=== PATIENT | female | born 1935 | race Caucasian/White ===

== ENCOUNTER → 2017-05-17 | Outpatient (CLI) | payer MEDICARE ==
[~2017-05-17] MED LIST: LEVSOD175
[2017-05-17 15:01] LABS: BASOPHILS ABSOLUTE AUTO 0.04 K/mm3 (0.00-0.23); BASOPHILS PERCENT AUTO 1 % (0-2); EOSINOPHILS ABSOLUTE AUTO 0.05 K/mm3 (0.00-0.68); EOSINOPHILS PERCENT AUTO 1 % (0-6); Hematocrit 32.9 % (33.0-51.0); Hemoglobin 10.7 g/dL (11.5-16.0); IMMATURE GRAN ABSOLUTE AUTO 0.01 K/mm3 (0.00-0.10); IMMATURE GRAN PERCENT AUTO 0 % (0-1); LYMPHOCYTES ABSOLUTE AUTO 0.34 K/mm3 (0.84-5.20); LYMPHOCYTES PERCENT AUTO 9 % (21-46); MONOCYTES ABSOLUTE AUTO 0.42 K/mm3 (0.16-1.47); MONOCYTES PERCENT AUTO 11 % (4-13); Mean Corpuscular HGB 30.7 pg (26.0-34.0); Mean Corpuscular HGB Conc 32.5 g/dL (31.5-36.5); Mean Corpuscular Volume 94 fL (80-100); Mean Platelet Volume 8.5 fL (9.1-12.4); NEUTROPHILS ABSOLUTE AUTO 3.04 K/mm3 (1.96-9.15); NEUTROPHILS PERCENT AUTO 78 % (41-73); Platelet Count 311 K/mm3 (150-400); RDW Coefficient Variation 14.9 % (11.7-14.2); RDW Standard Deviation 51.6 fL (35.1-46.3); Red Blood Cell Count 3.49 M/mm3 (3.80-5.20)
[2017-05-17 15:12] LABS: Alanine Aminotransfer (ALT/SGP 13 U/L (12-78); Albumin, Blood 3.3 g/dL (3.4-5.0); Alk Phos 179 U/L (40-126); Anion Gap 8 mmol/L (6-16); Aspartate Aminotrans (AST/SGOT 13 U/L (12-37); Bilirubin, Total 0.3 mg/dL (0.1-1.0); Blood Urea Nitrogen 10 mg/dL (8-24); Bun/Creatinine Ratio 17.5 (12.0-20.0); CO2, Blood 28 mmol/L (21-32); Calcium, Blood 8.4 mg/dL (8.5-10.1); Chloride, Blood 101 mmol/L (98-108); Creatinine, Blood 0.57 mg/dL (0.40-1.00); Globulin, Blood 3.2 g/dL (2.2-4.0); Glomerular Filtration Rate >60 (60-); Glucose, Blood 97 mg/dL (70-99); Potassium, Blood 3.8 mmol/L (3.5-5.5); Sodium, Blood 137 mmol/L (136-145); Total Protein, Blood 6.5 g/dL (6.4-8.2)
== END | disposition home or self-care (01) ==
LOC: LAB EV 14:56 → LAB SHORT 14:56
PROVIDERS: Physician Assistant Medical
DX: R60.9 Edema, unspecified (principal)
CPT/HCPCS: 80053; 83880; 85025

== ENCOUNTER 2018-11-19 14:41 | Emergency (ER) | payer MEDICARE, BC ==
[~2018-11-19] VITALS: Ht 172.7 cm; Wt 55.8 kg
[2018-11-19] MEDS ORDERED: Norco 5-325 Ta1 EACH PO (16:52)
[2018-11-19] MEDS ORDERED: Zofran8 MG PO (16:52)
== END 2018-11-19 17:00 | disposition home or self-care (01) ==
LOC: ER 14:41
DX: S43.402A Unspecified sprain of left shoulder joint, initial encounter (principal); S20.212A Contusion of left front wall of thorax, initial encounter; E03.9 Hypothyroidism, unspecified; Z87.891 Personal history of nicotine dependence; Z79.899 Other long term (current) drug therapy; W18.09XA Striking against other object with subsequent fall, initial encounter
CPT/HCPCS: 71101; 73030; 99283-25

== ENCOUNTER 2018-12-12 20:27 | Emergency (ER) | payer MEDICARE, BC ==
[~2018-12-12] VITALS: Ht 167.6 cm; Wt 63.5 kg
[~2018-12-12 20:27] MED LIST changes: +Norco 5-325 Ta1 EACH PO; +Zofran8 MG PO
[2018-12-12 21:41] LABS: Source, Urine Catheter
[2018-12-12 21:44] LABS: BASOPHILS ABSOLUTE AUTO 0.02 K/mm3 (0.00-0.23); BASOPHILS PERCENT AUTO 0 % (0-2); EOSINOPHILS ABSOLUTE AUTO 0.05 K/mm3 (0.00-0.68); EOSINOPHILS PERCENT AUTO 1 % (0-6); Hematocrit 40.7 % (33.0-51.0); Hemoglobin 12.8 g/dL (11.5-16.0); IMMATURE GRAN ABSOLUTE AUTO 0.01 K/mm3 (0.00-0.10); IMMATURE GRAN PERCENT AUTO 0 % (0-1); LYMPHOCYTES ABSOLUTE AUTO 0.41 K/mm3 (0.84-5.20); LYMPHOCYTES PERCENT AUTO 7 % (21-46); MONOCYTES ABSOLUTE AUTO 0.43 K/mm3 (0.16-1.47); MONOCYTES PERCENT AUTO 7 % (4-13); Mean Corpuscular HGB 29.7 pg (26.0-34.0); Mean Corpuscular HGB Conc 31.4 g/dL (31.5-36.5); Mean Corpuscular Volume 94 fL (80-100); Mean Platelet Volume 8.8 fL (9.1-12.4); NEUTROPHILS ABSOLUTE AUTO 5.26 K/mm3 (1.96-9.15); NEUTROPHILS PERCENT AUTO 85 % (41-73); Platelet Count 283 K/mm3 (150-400); RDW Coefficient Variation 13.7 % (11.7-14.2); RDW Standard Deviation 48.4 fL (35.1-46.3); Red Blood Cell Count 4.31 M/mm3 (3.80-5.20); White Blood Cell Count 6.18 K/mm3 (4.00-11.30)
[2018-12-12 21:44] LABS: Bilirubin, Urine Neg (Neg); Blood, Urine 2+ (Neg); Glucose Qualitative, Urine Neg (Neg); Ketones, Urine 3+ (Neg); Leukocyte Esterase, Urine 2+ (Neg); Nitrite, Urine Neg (Neg); Protein, Urine 1+ (Neg); Urobilinogen, Urine 1+ (Normal)
[2018-12-12 21:46] LABS: Appearance, Urine Clear (Clear); Color, Urine Amber (P-Yellow)
[2018-12-12 21:50] LABS: Bacteria Many /hpf; Red Blood Cells, Urine 0-2 /hpf (0-2); Squamous Epithelial Cells Few /hpf (Few)
[2018-12-12 22:02] LABS: Alanine Aminotransfer (ALT/SGP 16 U/L (12-78); Albumin, Blood 3.7 g/dL (3.4-5.0); Alk Phos 96 U/L (50-136); Anion Gap 7 mmol/L (6-16); Aspartate Aminotrans (AST/SGOT 22 U/L (12-37); Bilirubin, Total 0.5 mg/dL (0.1-1.0); Blood Urea Nitrogen 14 mg/dL (8-24); Bun/Creatinine Ratio 20.1 (12.0-20.0); CO2, Blood 24 mmol/L (21-32); Chloride, Blood 109 mmol/L (98-108); Globulin, Blood 3.6 g/dL (2.2-4.0); Glomerular Filtration Rate >60 (60-); Glucose, Blood 89 mg/dL (70-99); Potassium, Blood 4.1 mmol/L (3.5-5.5); Sodium, Blood 140 mmol/L (136-145); Total Protein, Blood 7.3 g/dL (6.4-8.2)
[2018-12-12] MEDS ORDERED: Keflex500 MG PO (23:17)
[2018-12-12] MEDS ORDERED: Cyclobenzaprine5 MG PO (23:17)
== END 2018-12-12 23:22 | disposition home or self-care (01) ==
LOC: ER 20:27
PROVIDERS: Emergency Medicine
DX: M62.838 Other muscle spasm (principal); N39.0 Urinary tract infection, site not specified; E03.9 Hypothyroidism, unspecified; Z87.891 Personal history of nicotine dependence; Z79.899 Other long term (current) drug therapy
CPT/HCPCS: 70450; 72125; 80053; 81001; 83735; 85025; 87077; 87086; 87186; 99284-25; P9612

== ENCOUNTER 2019-05-30 11:21 | Inpatient (IN) | payer MEDICARE, BC ==
[~2019-05-30] VITALS: Ht 147.3 cm; Wt 36.3 kg
[~2019-05-30 11:21] MED LIST changes: +Cyclobenzaprine5 MG PO; +Keflex500 MG PO; +LEVSOD137 PO; -LEVSOD175
[2019-05-30 12:27] LABS: Source, Urine Clean Catch
[2019-05-30 12:37] LABS: Bilirubin, Urine Neg (Neg); Blood, Urine 2+ (Neg); Glucose Qualitative, Urine 2+ (Neg); Ketones, Urine 2+ (Neg); Leukocyte Esterase, Urine Neg (Neg); Nitrite, Urine Neg (Neg); Protein, Urine 3+ (Neg); Specific Gravity, Urine 1.015 (1.003-1.022); Urobilinogen, Urine 1+ (Normal)
[2019-05-30 12:50] LABS: Bilirubin, Total 0.6 mg/dL (0.1-1.0); Bun/Creatinine Ratio 32.8 (12.0-20.0); Calcium, Blood 9.1 mg/dL (8.5-10.1); Creatinine, Blood 1.28 mg/dL (0.40-1.00); Globulin, Blood 3.9 g/dL (2.2-4.0); Potassium, Blood 3.4 mmol/L (3.5-5.5); Total Protein, Blood 7.9 g/dL (6.4-8.2)
[2019-05-30 13:19] LABS: Appearance, Urine Clear (Clear); Color, Urine Yellow (P-Yellow)
[2019-05-30 13:21] LABS: Bacteria Mod /hpf; Mucus Mod (0-Heavy); Squamous Epithelial Cells Few /hpf (Few)
[2019-05-30 15:03] LABS: BASOPHILS ABSOLUTE AUTO 0.02 K/mm3 (0.00-0.23); BASOPHILS PERCENT AUTO 0 % (0-2); EOSINOPHILS PERCENT AUTO 0 % (0-6); Hematocrit 43.7 % (33.0-51.0); Hemoglobin 13.9 g/dL (11.5-16.0); IMMATURE GRAN ABSOLUTE AUTO 0.12 K/mm3 (0.00-0.10); IMMATURE GRAN PERCENT AUTO 1 % (0-1); LYMPHOCYTES ABSOLUTE AUTO 0.62 K/mm3 (0.84-5.20); LYMPHOCYTES PERCENT AUTO 3 % (21-46); MONOCYTES PERCENT AUTO 10 % (4-13); Mean Corpuscular HGB 28.5 pg (26.0-34.0); Mean Corpuscular HGB Conc 31.8 g/dL (31.5-36.5); Mean Corpuscular Volume 90 fL (80-100); Mean Platelet Volume 9.1 fL (9.1-12.4); NEUTROPHILS ABSOLUTE AUTO 19.03 K/mm3 (1.96-9.15); NEUTROPHILS PERCENT AUTO 87 % (41-73); Platelet Count 293 K/mm3 (150-400); RDW Coefficient Variation 14.4 % (11.7-14.2); Red Blood Cell Count 4.88 M/mm3 (3.80-5.20); White Blood Cell Count 21.89 K/mm3 (4.00-11.30)
[2019-05-30] MEDS ORDERED: Aspir 8181 MG PO (15:37)
[2019-05-30] MEDS ORDERED: VITAMIN D325 MCG PO (15:38)
[2019-05-30] MEDS ORDERED: CEPH500 PO (15:56)
--- NOTE | 2019-05-30 20:30 | NUR ---
CALL TO HOSPITALIST TO REPORT CRITICAL LACTIC ACID- DR. BO ALREADY AWARE AND HAS MADE CHANGES TO PT FLUID. REQUESTED ATIVAN FOR PT DUE TO ANXIETY AMB PT VERBALIZING AXIOUSNESS SURROUNDING BEING IN THE HOSPITAL- SHE DOES NOT WANT TO BECOME INFECTED. PT SITTING UP REPEATEDLY AND PERSEVERATING SEEMING ANXIOUS IN HER CONVERSATION W/DAUGHTER. RECIEVING ORDER FOR PRN.
[2019-05-31 04:14] LABS: BASOPHILS ABSOLUTE AUTO 0.01 K/mm3 (0.00-0.23); BASOPHILS PERCENT AUTO 0 % (0-2); EOSINOPHILS PERCENT AUTO 0 % (0-6); Hematocrit 37.4 % (33.0-51.0); Hemoglobin 11.5 g/dL (11.5-16.0); IMMATURE GRAN ABSOLUTE AUTO 0.04 K/mm3 (0.00-0.10); IMMATURE GRAN PERCENT AUTO 0 % (0-1); LYMPHOCYTES ABSOLUTE AUTO 0.61 K/mm3 (0.84-5.20); LYMPHOCYTES PERCENT AUTO 4 % (21-46); MONOCYTES ABSOLUTE AUTO 0.76 K/mm3 (0.16-1.47); MONOCYTES PERCENT AUTO 5 % (4-13); Mean Corpuscular HGB 28.7 pg (26.0-34.0); Mean Corpuscular HGB Conc 30.7 g/dL (31.5-36.5); Mean Platelet Volume 9.2 fL (9.1-12.4); NEUTROPHILS ABSOLUTE AUTO 12.67 K/mm3 (1.96-9.15); NEUTROPHILS PERCENT AUTO 90 % (41-73); Platelet Count 282 K/mm3 (150-400); RDW Coefficient Variation 14.3 % (11.7-14.2); RDW Standard Deviation 49.5 fL (35.1-46.3); Red Blood Cell Count 4.01 M/mm3 (3.80-5.20); White Blood Cell Count 14.09 K/mm3 (4.00-11.30)
[2019-05-31 04:15] LABS: Mean Corpuscular Volume 93 fL (80-100)
[2019-05-31 04:29] LABS: Anion Gap 9 mmol/L (6-16); Blood Urea Nitrogen 66 mg/dL (8-24); Bun/Creatinine Ratio 75.9 (12.0-20.0); CO2, Blood 18 mmol/L (21-32); Calcium, Blood 8.1 mg/dL (8.5-10.1); Chloride, Blood 113 mmol/L (98-108); Creatinine, Blood 0.87 mg/dL (0.40-1.00); Glomerular Filtration Rate >60 (60-); Glucose, Blood 91 mg/dL (70-99); Potassium, Blood 3.2 mmol/L (3.5-5.5); Sodium, Blood 140 mmol/L (136-145)
--- NOTE | 2019-05-31 07:10 | NUR ---
SHIFT SUMMARY: VSS. TEMPS 99.7, 99.8. PT A/O TO SELF, SURROUNDINGS, FAMILY. PT ANXIOUS ABOUT BEING IN THE HOSPITAL. SLEPT THROUGH MUCH OF THE NIGHT. SOME INCREASED CONFUSION NOTED WHEN FIRST WAKING UP AND IMPROVED THE LONGER SHE REMAINS AWAKE. DAUGHTER AT BEDSIDE, OFFERS PT REASSURANCE. PT SOMEWHAT DIFFICULT TO UNDERSTAND. DENIES PAIN. IV FLUIDS ORDERED. PT INCONT. BT HYPOACTIVE. 2 VERY SMALL BMS AFTER SUPPOSITORY GIVEN. EXPIRATORY RHONCHI AUSCULATED BILATERALLY, BASES DIM. 02 SATS WNL ON RA. BED LOW, BED ALARM ON. DOES NOT USE CALL BUTTON. REPORT GIVEN TO DAY RN.
--- NOTE | 2019-05-31 14:28 | NUR ---
Upon receiving a referral for spiritual care, I visit patient. Patient is crying in bed when I enter patient's room. Patient tells she is sad because she does not have her teeth. SHe explains that she has no idea where she is or why she is here or what is wrong with her, but she admits that she is very confused. She then gets emotional about her teeth. She finally says that her daughter, Suze, has them and dinesh bring them later. I ask patient about her life and her childhood and she goes back to her concern about her teeth but adds that she has to daughters that hate her and won't have anything to do with her. I listen empathically and provide companionship and a calming presence. I will continue to remain available to patient and family.
--- NOTE | 2019-05-31 17:59 | NUR ---
SHIFT SUMMARY- PT IS ALERT, PLESANT WITH SOME INTERMITENT CONFUSION. HER DAUGHTER WAS AT THE BEDSIDE THIS MORNING, BUT LEFT THIS AFTERNOON, SHE WILL RETURN TOMORROW. PT WORKED WITH PT/ OT THIS MORNING. WAS UP IN THE CHAIR. PT RETURNED TO BED WHEN HER DAUGHTER LEFT AND SLEPT FOR SEVERAL HOURS. UPON AWAKINGING SHE WAS UPSET ABOUT HER TEETH. LET THE PT KNOW THAT HER DAUGHTER WOULD BE BRINGING THEM BACK WITH HER. SPOKE WITH DAUGHTER ON THE PHONE TO UPDATE. PT IS DRINKING BROTH AND IS TOLERATING WELL. SHE IS USING THE BEDSIDE CAMMODE.
--- NOTE | 2019-05-31 21:08 | NUR ---
PT CONFUSED AND CALLING OUT, NURSE NOTIFIED
[2019-06-01 04:47] LABS: Hematocrit 33.9 % (33.0-51.0); Hemoglobin 10.5 g/dL (11.5-16.0); Mean Corpuscular HGB 28.2 pg (26.0-34.0); Mean Corpuscular Volume 91 fL (80-100); Mean Platelet Volume 9.2 fL (9.1-12.4); Platelet Count 228 K/mm3 (150-400); RDW Coefficient Variation 14.4 % (11.7-14.2); Red Blood Cell Count 3.73 M/mm3 (3.80-5.20); White Blood Cell Count 7.05 K/mm3 (4.00-11.30)
--- NOTE | 2019-06-01 04:55 | NUR ---
SHIFT SUMMARY: VSS. TEMP 99.1. 02 SATS 98% ON RA. LSCTA, BASES DIM. A/O TO SELF. REDIRECTS EASILY AND READILY ACCEPTS REASSURANCE. FORGETFUL AND ANXIOUS ON OCCASION. ATIVAN ADMINISTERED X 1, HELPS SOME. PT INTERMITTENTLY TEARFUL W/WORRY ABOUT TEETH AND GLASSES SHE FEELS ARE MISSING. THANKFUL WHEN REASSURED. DOES NOT USE CALL BUTTON FOR ASSIST. BED ALARM ON. SIDE RAILS UPX3 PER PT REQUEST. IV IN L ARM SALINE LOCKED. L ARM NOTED TO HAVE SWELLING, NON-PITTING. PT DENIES L ARM PAIN. RADIAL PULSE STRONG AND EQUAL. HANDS EQUALLY WARM. GRE TUTOR EQUALLY WEAK. PT LAYS ON THE LEFT SIDE W/ARM CURLED UNDER HER. CONT/INCONT. DENIES N/V. TOLERATING CLEAR LIQUIDS WELL. BT HYPOACTIVE. DENIES ABD TENDERNESS. NO BM TONIGHT.
[2019-06-01 05:09] LABS: Albumin, Blood 2.7 g/dL (3.4-5.0); Anion Gap 6 mmol/L (6-16); Blood Urea Nitrogen 33 mg/dL (8-24); Bun/Creatinine Ratio 52.9 (12.0-20.0); CO2, Blood 21 mmol/L (21-32); Calcium, Blood 8.1 mg/dL (8.5-10.1); Chloride, Blood 117 mmol/L (98-108); Creatinine, Blood 0.62 mg/dL (0.40-1.00); Glomerular Filtration Rate >60 (60-); Glucose, Blood 72 mg/dL (70-99); Magnesium, Blood 2.1 mg/dL (1.6-2.4); Potassium, Blood 3.7 mmol/L (3.5-5.5); Sodium, Blood 144 mmol/L (136-145)
--- NOTE | 2019-06-01 18:16 | NUR ---
SHIFT SUMMARY- PT IS ALERT, PLESANT AND CONFUSED. SHE HAD A VERY SMALL BM THIS MORNING. IS RECIEVING BOWEL CARE AND DISCHARGE IS PENDING HER HAVING A BM. IV INFULTRATED AND ANTIBIOTICS WERE SWITCHED TO ORAL. SHE HAS URINARY URGENCY. SHE HAS HAD FREQUENT URINATIONS. SHE WAS VERY ANXIOUS THIS AFTERNOON ABOUT WANTING TO GO HOME, TREATED WITH ATIVAN. HER APPETITE IS DIMINISHED.
--- NOTE | 2019-06-02 04:44 | NUR ---
PT A/O X3, CANNOT RECALL YEAR. PT HAS BEEN CRYING OUT MULTIPLE TIMES TONIGHT WANTING TO GO HOME. IT SEEMS LIKE SHE DOES GET CONFUSED TOO. ZYPREXA 10 MG IV 1 TIME DOSE ORDERED IF NEEDED. SHE HAS TRIED TO GET OUT OF BED A COUPLE OF TIMES TONIGHT. BED ALARM. PT HAD 2-3 DIARRHEA EPISODES. VERY LOOSE AND DARK BROWN. VSS. NO ACUTE CHANGES.
[2019-06-02] MEDS ORDERED: CEFU500T30 PO (12:07)
[2019-06-02] MEDS ORDERED: AZITHROMYCIN500 M1 PO (12:07)
[2019-06-02] MEDS ORDERED: MIRALAX17 GM PO (12:10)
[2019-06-02] MEDS ORDERED: VISBIOME 112.51 EACH PO (12:10)
--- NOTE | 2019-06-02 17:05 | NUR ---
PT. DISCHARGED HOME WITH HOME HEALTH. DAUGHTER WILL BE TAKING CARE OF HER NOW IN HER OWN HOME. PAPERWORK SENT WITH PT. AND I LEFT A MESSAGE ON HER CELL PHONE TO CALL IF SHE HAD ANY QUESTIONS.
== END 2019-06-02 17:06 | disposition home health service (06) | DRG 871 ==
LOC: ER 11:21 → MEDS 17:33
PROVIDERS: Emergency Medicine; ADMIT Internal Medicine
DX: A41.9 Sepsis, unspecified organism (principal); J69.0 Pneumonitis due to inhalation of food and vomit; J96.01 Acute respiratory failure with hypoxia; G92 Toxic encephalopathy; N39.0 Urinary tract infection, site not specified; N17.9 Acute kidney failure, unspecified; E44.0 Moderate protein-calorie malnutrition; Z68.1 Body mass index [BMI] 19.9 or less, adult; S22.089A Unspecified fracture of T11-T12 vertebra, initial encounter for closed fracture; S32.059A Unspecified fracture of fifth lumbar vertebra, initial encounter for closed fracture; R65.20 Severe sepsis without septic shock; E87.6 Hypokalemia; E83.39 Other disorders of phosphorus metabolism; K59.00 Constipation, unspecified; K57.30 Diverticulosis of large intestine without perforation or abscess without bleeding; K44.9 Diaphragmatic hernia without obstruction or gangrene; E03.9 Hypothyroidism, unspecified; Z79.82 Long term (current) use of aspirin
CPT/HCPCS: 36415; 51701; 70450; 71045; 74176; 80048; 80053; 80069; 81001; 83605; 83735; 85025; 85027; 87040; 87086; 93005; 93010; 96361; 96365; 97112; 97116; 97162; 97166; 97530; 97535; 99285-25; J0456; J0696; J1650; J3480; J7030; J7050

== ENCOUNTER 2019-06-23 03:17 | Observation (INO) | payer MEDICARE, BC ==
[~2019-06-23] VITALS: Ht 157.5 cm; Wt 42.1 kg
[~2019-06-23 03:17] MED LIST changes: +AZITHROMYCIN500 M1 PO; +Aspir 8181 MG PO; +CEFU500T30 PO; +CEPH500 PO; +MIRALAX17 GM PO; +VISBIOME 112.51 EACH PO; +VITAMIN D325 MCG PO
[2019-06-23 04:33] LABS: BASOPHILS ABSOLUTE AUTO 0.02 K/mm3 (0.00-0.23); BASOPHILS PERCENT AUTO 0 % (0-2); EOSINOPHILS PERCENT AUTO 0 % (0-6); Hematocrit 44.1 % (33.0-51.0); Hemoglobin 14.1 g/dL (11.5-16.0); IMMATURE GRAN ABSOLUTE AUTO 0.03 K/mm3 (0.00-0.10); IMMATURE GRAN PERCENT AUTO 0 % (0-1); LYMPHOCYTES ABSOLUTE AUTO 0.35 K/mm3 (0.84-5.20); LYMPHOCYTES PERCENT AUTO 3 % (21-46); MONOCYTES ABSOLUTE AUTO 0.47 K/mm3 (0.16-1.47); MONOCYTES PERCENT AUTO 5 % (4-13); Mean Corpuscular HGB 28.7 pg (26.0-34.0); Mean Corpuscular Volume 90 fL (80-100); Mean Platelet Volume 8.5 fL (9.1-12.4); NEUTROPHILS ABSOLUTE AUTO 9.38 K/mm3 (1.96-9.15); NEUTROPHILS PERCENT AUTO 92 % (41-73); Platelet Count 377 K/mm3 (150-400); RDW Coefficient Variation 15.9 % (11.7-14.2); RDW Standard Deviation 51.7 fL (35.1-46.3); Red Blood Cell Count 4.91 M/mm3 (3.80-5.20); White Blood Cell Count 10.25 K/mm3 (4.00-11.30)
[2019-06-23 05:00] LABS: Alanine Aminotransfer (ALT/SGP 13 U/L (12-78); Albumin, Blood 3.7 g/dL (3.4-5.0); Albumin/Globulin Ratio 1.1 (0.8-1.8); Alk Phos 91 U/L (50-136); Anion Gap 10 mmol/L (6-16); Aspartate Aminotrans (AST/SGOT 10 U/L (12-37); Bilirubin, Total 0.6 mg/dL (0.1-1.0); Blood Urea Nitrogen 28 mg/dL (8-24); Bun/Creatinine Ratio 27.2 (12.0-20.0); CO2, Blood 32 mmol/L (21-32); Calcium, Blood 9.2 mg/dL (8.5-10.1); Chloride, Blood 95 mmol/L (98-108); Creatinine, Blood 1.03 mg/dL (0.40-1.00); Globulin, Blood 3.5 g/dL (2.2-4.0); Glomerular Filtration Rate 54 (60-); Glucose, Blood 124 mg/dL (70-99); Potassium, Blood 3.2 mmol/L (3.5-5.5); Sodium, Blood 137 mmol/L (136-145); Total Protein, Blood 7.2 g/dL (6.4-8.2); Troponin I <0.015 ng/mL (0.000-0.040)
[2019-06-23 17:23] LABS: Source, Urine Clean Catch
[2019-06-23 17:27] LABS: Bilirubin, Urine Neg (Neg); Blood, Urine Neg (Neg); Glucose Qualitative, Urine Neg (Neg); Ketones, Urine 1+ (Neg); Leukocyte Esterase, Urine 1+ (Neg); Nitrite, Urine Neg (Neg); Protein, Urine 3+ (Neg); Urobilinogen, Urine NORM (Normal)
[2019-06-23 17:31] LABS: Appearance, Urine Clear (Clear); Color, Urine Yellow (P-Yellow)
[2019-06-23 17:36] LABS: Amorphous Light (0-Heavy); Bacteria Few /hpf; Mucus Light (0-Heavy); Red Blood Cells, Urine 0-2 /hpf (0-2); Squamous Epithelial Cells Few /hpf (Few); White Blood Cells, Urine 0-2 /hpf (0-5)
--- NOTE | 2019-06-23 17:39 | NUR ---
SHIFT [place]- PT IS CONFUSED. SHE SLEPT FOR MUCH OF THIS SHIFT. DIETARY CONSULTED TO SEE PT ABOUT NUTRITIONAL STATUS. PT HAS HAD A SIGNIFIGANT DROP IN BODY WEIGHT COMPARED TO HER LAST VISIT. PT STATED THAT SHE WANTED TO LIVE IN THE HOUSE WITH HER DAUGHTER BUT WAS STILL LIVING IN HER TRAILER. PREFORMED A STRAIGHT CATH FOR URINE COLLECTION, AND PT WAS STARTED ON ANTIBIOTICS. PT VOMITING 2 TIMES THIS SHIFT DARK COLORED EMISIS. PROVIDER NOTIFIED ORDERED MEDICATIONS ACCORDINGLY. HER APPETITE IS POOR. BOWEL CARE PROVIDED WITH NOT OUTPUT OF STOOL THIS SHIFT.
--- NOTE | 2019-06-24 04:58 | NUR ---
SHIFT SUMMARY- PT. ASLEEP T/O MOST OF THE NIGHT, NO APPARENT DISTRESS NOTED. PT. NOTED TO BE CONFUSED AND NONSENSICAL. SCHEDULED MEDS GIVEN, TOLERATED WELL. PT. HAS HAD NO VOMITING OR BM THIS SHIFT. DECLINED TO FINISH DINNER, PO FLUIDS OFFERED. NO C/O PAIN OR DISCOMFORT DURING THE NIGHT. CALL LIGHT WITHIN REACH, SIDE RAILS UP X2, AND BED ALARM ON FOR SAFETY. WILL CONT TO MONITOR.
[2019-06-24 05:25] LABS: BASOPHILS PERCENT AUTO 0 % (0-2); EOSINOPHILS PERCENT AUTO 0 % (0-6); Hematocrit 33.3 % (33.0-51.0); Hemoglobin 10.3 g/dL (11.5-16.0); IMMATURE GRAN ABSOLUTE AUTO 0.01 K/mm3 (0.00-0.10); IMMATURE GRAN PERCENT AUTO 0 % (0-1); LYMPHOCYTES ABSOLUTE AUTO 0.45 K/mm3 (0.84-5.20); LYMPHOCYTES PERCENT AUTO 11 % (21-46); MONOCYTES ABSOLUTE AUTO 0.36 K/mm3 (0.16-1.47); MONOCYTES PERCENT AUTO 9 % (4-13); Mean Corpuscular HGB 29.3 pg (26.0-34.0); Mean Corpuscular HGB Conc 30.9 g/dL (31.5-36.5); Mean Platelet Volume 8.8 fL (9.1-12.4); NEUTROPHILS ABSOLUTE AUTO 3.22 K/mm3 (1.96-9.15); NEUTROPHILS PERCENT AUTO 80 % (41-73); Platelet Count 236 K/mm3 (150-400); RDW Coefficient Variation 15.9 % (11.7-14.2); RDW Standard Deviation 55.4 fL (35.1-46.3); Red Blood Cell Count 3.52 M/mm3 (3.80-5.20); White Blood Cell Count 4.04 K/mm3 (4.00-11.30)
[2019-06-24 05:31] LABS: Mean Corpuscular Volume 95 fL (80-100)
[2019-06-24 05:45] LABS: Anion Gap 8 mmol/L (6-16); Blood Urea Nitrogen 44 mg/dL (8-24); Bun/Creatinine Ratio 61.5 (12.0-20.0); CO2, Blood 20 mmol/L (21-32); Calcium, Blood 7.6 mg/dL (8.5-10.1); Chloride, Blood 110 mmol/L (98-108); Creatinine, Blood 0.72 mg/dL (0.40-1.00); Glomerular Filtration Rate >60 (60-); Glucose, Blood 59 mg/dL (70-99); Magnesium, Blood 2.2 mg/dL (1.6-2.4); Potassium, Blood 4.4 mmol/L (3.5-5.5); Sodium, Blood 138 mmol/L (136-145)
--- NOTE | 2019-06-24 09:36 | NUR ---
PATIENTS ATTENDS WERE CHECKED AND THEY WERE CLEAN AND DRY. PATIENT WAS ALSO REPOSTIONED,
--- NOTE | 2019-06-24 13:08 | NUR ---
Review of patient with mac. Met with patient she was able to participate in answering most questions. Review of symptoms. Pt has mild headache no ringining in ears. Voice is hoasrs and raspy and some sorenss to throat and sorness with swallowing. Denies pain to her back, arms legs and joints, She deneies dyspnea or painfull vinilation. Describes abdomen as bloated and firm and hurts a litttle. She has hunger but mostly mild nausea. she in not belching or passing very much gas. She is starting to feel urges to go. Review prn meds and routes with nursing if pt increasing nausea or difficulty swallowing may need sub lingual or rectal meds. Tylenol to elixer for better tolerance. Plan is to avaoid narcotics as much as possible. Spoke with her daughter and she will be glad to take her home tomorrow if she is not vomiting frequntly or vomiting blood. will update care staff.
--- NOTE | 2019-06-24 17:14 | NUR ---
SHIFT SUMMARY- PT IS PLESANT AND COOPERATIVE. DR. MAR SPOKE WITH PTS DAUGHER THIS MORNING AND DECIDED TO TRANSITION PT TO COMFORT CARE. SHE HAS SOME INTERMITENT CONFUSION AND AGITATION THIS MORNING, AFTER LUNCH SHE SLEPT FOR SEVERAL HOURS AND HAS BEEN PLESANT AND CHEERFUL THIS AFTERNOON. FAMILY SENT IN GIFTS AND PT WAS VERY HAPPY TO RECIEVE THEM. SHE WAS UP TO THE BEDSIDE CAMMODE TO VOID. NO BOWEL MOVMENTS THIS SHIFT. HER APPETITE IS POOR, BUT SHE HAS BEEN DRINKING WATER AND COFFEE THIS SHIFT.
--- NOTE | 2019-06-25 03:09 | NUR ---
SUMMARY: PT REMAINS ON COMFORT CARE. SHE'S A/OX3 BUT IS FORGETFULL AND CALLS INTO [facility] FOR ASSIST. SHE'S PLEASANT AND COOPERATIVE W/CARE BUT ISN'T USED TO BEING ALONE SO HAS ANXIETY WHEN AWAKE. ATIVAN RECIEVED PRN AT HS FOR GOOD EFFECT. SHE WAS ASSISTED TO CALL HER DAUGHTER TO ALSO HELP CALM HER NERVES. SHE'S DENIED PAIN/COMPLAINTS AND WAS PROVIDED SNACKS PER REQUEST. SHE LOVES COFFEE AND ENJOYED SOME BROTH TONIGHT. 1ASSIST PROVIDED TO BSC TO VOID, NO BM THIS SHIFT. NO ACUTE CHANGES. POSSIBLE D/C HOME W/HOSPICE TODAY.
--- NOTE | 2019-06-25 10:55 | NUR ---
Pt resting in bed upon arrival. Pt denies pain at this time. Engaged in therapeutic listening as Pt expresses fears and concerns. Pt reports missing her who has already passed. Listened as Pt continues to express other fears and this RN validated fears. Offered gentle voice, touch, and held Pt's hand. Delivered Pt some water per her request. Pt expressed appreciation of visit. Spoke with Bedside RN Ameya and discussed case. Plan for Pt to discharge home with hospice this afternoon. Palliative Care will remain available.
[2019-06-25] MEDS ORDERED: LORA.5 PO (10:57)
[2019-06-25] MEDS ORDERED: MORP20L PO (11:00)
--- NOTE | 2019-06-25 14:44 | NUR ---
PT DCD HOME WITH HOSPICE AND DAUGHTER. HOSPICE [facility] COORDINATED HER IN HOME HOSPICE WITH HER DAUGHTER. ALL MEDS AND INSTRUCTIONS REVIEWED WITH THE DAUGHTER VIA PHONE. RX FAXED TO PHARMACY ON FILE. NO IV. ALL PERSONAL BELONGINGS SENT WITH PT. PT STABLE UPON DC.
--- NOTE | 2019-06-25 16:14 | NUR ---
Initial spiritual care note: Mrs. Allison appears a bit confused. She is anxious to return home to her dtr's. She does not appear to understand that she is nearing end-of-life. Her biggest concern is not having the food she enjoys while hospitalized. She spoke about the of her son and her . she admits she is still grieving these losses. I provided gentle bereavement credit counselor/education to good effect. Facilitated t/c to dtr and this made Shalini very happy. She is being d/c today. She denied pain/concerns.
== END 2019-06-25 14:28 | disposition hospice, home (50) ==
LOC: ER 03:17 → MEDS 03:18 → ENPENDDIS 06-25 09:59 → MEDS 06-25 14:28
PROVIDERS: Emergency Medicine; ADMIT Internal Medicine
DX: R53.1 Weakness (principal); R11.2 Nausea with vomiting, unspecified; G30.9 Alzheimer's disease, unspecified; F02.80 Dementia in other diseases classified elsewhere, unspecified severity, without behavioral disturbance, psychotic disturbance, mood disturbance, and anxiety; E44.0 Moderate protein-calorie malnutrition; E87.6 Hypokalemia; Z66 Do not resuscitate; D64.9 Anemia, unspecified; E03.9 Hypothyroidism, unspecified; K59.00 Constipation, unspecified; Z68.1 Body mass index [BMI] 19.9 or less, adult; H91.90 Unspecified hearing loss, unspecified ear; Z79.899 Other long term (current) drug therapy; Z79.82 Long term (current) use of aspirin
CPT/HCPCS: 36415; 71045; 74176; 80048; 80053; 81001; 83735; 84484; 85025; 87086; 93005; 93010; 96365; 96374; 96375; 96376; 99285-25; A9270; C9113; G0378; J0696; J2405; J3480